=== PATIENT | female | born 1970 ===

== ENCOUNTER 2018-09-15 07:51 | Day surgery (SDC) | payer OTHER ==
[~2018-09-15 07:51] MED LIST: SYNTHROID75 MCG PO
== END 2018-09-15 16:20 | disposition home or self-care (01) ==
LOC: CIR.AMB 07:51
PROVIDERS: Plastic Surgery
PROC: 0J080ZZ Alteration of Abdomen Subcutaneous Tissue and Fascia, Open Approach (ICD-10-PCS; principal; 2018-09-15 07:00)
DX: E65 Localized adiposity (principal); M62.08 Separation of muscle (nontraumatic), other site

== ENCOUNTER → 2018-10-13 10:44 | Outpatient (CLI) | payer OTHER | END | disposition home or self-care (01) | LOC: LAB 10:44 | DX: S31.109A Unspecified open wound of abdominal wall, unspecified quadrant without penetration into peritoneal cavity, initial encounter (principal) ==